=== PATIENT | female | born 1980 | race Two or more races ===

== ENCOUNTER 2021-03-06 11:28 | Emergency (ER) | payer MEDICAID, OTHER ==
[~2021-03-06] VITALS: Ht 167.6 cm; Wt 77.0 kg
[2021-03-06 12:30] LABS: BASOPHILS % 0.5 % (0.0-2.0); EOSINOPHILS % 1.4 % (0.0-5.0); HEMATOCRIT. 48.1 % (36.0-48.0); LYMPHOCYTES % 16.1 % (20.0-50.0); MEAN CORPUSCULAR VOLUME 89.7 fL (81.0-99.0); MEAN PLATELET VOLUME 9.5 fl (7.4-10.4); MONOCYTES % 4.8 % (2.0-8.0); NEUTROPHILS % 77.2 % (40.0-76.0); PLATELET 268 x1000/uL (130-400); RED BLOOD CELL COUNT 5.36 mill/uL (4.2-5.4); RED CELL DISTRIBUTION WIDTH 13.7 % (11.6-14.6)
[2021-03-06 12:54] LABS: CLARITY URINE CLOUDY (CLEAR); COLOR URINE YELLOW (YELLOW); KETONES URINE NEGATIVE (NEGATIVE); LEUKOCYTE ESTERASE URINE 1+ (NEGATIVE); NITRITE URINE POSITIVE (NEGATIVE); OCCULT BLOOD URINE 1+ (NEGATIVE); PH URINE 5.5 (4.5-8.0); PROTEIN URINE TRACE (NEGATIVE); SPECIFIC GRAVITY URINE 1.018 (1.005-1.030); UROBILINOGEN URINE 0.2 E.U./dL (0.2-1.0)
[2021-03-06 13:00] LABS: HCG SCREEN NEGATIVE
[2021-03-06 13:07] LABS: HEMOGLOBIN. 16.9 g/dL (12.0-16.0); MEAN CORPUSCULAR HEMOGLOBIN 31.5 pg (28.0-32.0)
[2021-03-06 15:02] LABS: CHLORIDE 107 mEq/L (98-107)
[2021-03-06] MEDS ORDERED: ACETAMINOPHEN 325MG TABLET PO ONE (21:30)
[2021-03-06 21:35] VITALS: BP 115/75
== END 2021-03-06 21:42 | disposition short-term general hospital (02) ==
LOC: ER 11:28 → CANBEDREQ 03-07 02:37
DX: K85.90 Acute pancreatitis without necrosis or infection, unspecified (principal)
CPT/HCPCS: 36415; 74176; 76705; 80048; 80076; 81003; 81025; 84703; 85025; 93005; 99285

== ENCOUNTER 2023-08-02 14:19 | Emergency (ER) | payer SELFPAY ==
[~2023-08-02] VITALS: Ht 167.6 cm; Wt 74.0 kg
[2023-08-02 14:21] VITALS: BP 106/66; TEMP 98.2; O2SAT 98
[2023-08-02 14:22] VITALS: PULSE 78; RESP 18
[2023-08-02] MEDS ORDERED: ACETAMINOPHEN 325MG TABLET PO PRN (14:45)
[2023-08-02 15:03] LABS: HEMATOCRIT. 34.4 % (36.0-48.0); HEMOGLOBIN. 12.6 g/dL (12.0-16.0); MEAN CORPUSCULAR HEMOGLOBIN 32.4 pg (28.0-32.0); MEAN CORPUSCULAR HGB CONC 36.7 g/dL (31.0-37.0); MEAN CORPUSCULAR VOLUME 88.1 fL (81.0-99.0); MEAN PLATELET VOLUME 9.6 fl (7.4-10.4); PLATELET 188 x1000/uL (130-400); RED CELL DISTRIBUTION WIDTH 14.8 % (11.6-14.6); WHITE BLOOD COUNT 10.1 x1000/uL (4.5-11.0)
[2023-08-02 15:11] LABS: DIFFERENTIAL COMMENT 1
[2023-08-02] MEDS ORDERED: METOCLOPRAMIDE HCL 10MG TABLET PO ONE (15:30)
[2023-08-02 15:34] LABS: CHLORIDE 101 mEq/L (98-107); INDEX HEMOLYSI 5 (1-3); INDEX ICTERIC 2 (1-4); INDEX LIPEMIC 2 (1-3); POTASSIUM 3.8 mEq/L (3.5-5.1); SODIUM 133 mEq/L (136-145)
[2023-08-02 15:51] LABS: ALBUMIN 2.9 g/dL (3.4-5.0); BILIRUBIN TOTAL 0.8 mg/dL (0.1-1.0); CALCIUM 7.9 mg/dL (8.5-10.1); CARBON DIOXIDE 15 mEq/L (21-32); CREATININE 0.5 mg/dL (0.6-1.3); GLUCOSE 123 mg/dL (70-105); PROTEIN TOTAL 7.3 g/dL (6.0-8.3); UREA NITROGEN BLOOD 6 mg/dL (7-21)
[2023-08-02 17:59] LABS: CLARITY URINE CLEAR (CLEAR); COLOR URINE YELLOW (YELLOW); GLUCOSE URINE NEGATIVE (NEGATIVE); KETONES URINE 3+ (NEGATIVE); LEUKOCYTE ESTERASE URINE NEGATIVE (NEGATIVE); NITRITE URINE NEGATIVE (NEGATIVE); OCCULT BLOOD URINE NEGATIVE (NEGATIVE); PH URINE 6.5 (4.5-8.0); PROTEIN URINE NEGATIVE (NEGATIVE); SPECIFIC GRAVITY URINE 1.012 (1.005-1.030); UROBILINOGEN URINE 0.2 E.U./dL (0.2-1.0)
[2023-08-02 18:04] LABS: ANISOCYTOSIS 1+; PLATELET ESTIMATE NORMAL
[2023-08-02 19:17] LABS: ALANINE AMINOTRANSFERASE 29 IU/L (13-61); ASPARTATE AMINOTRANSFERASE 50 IU/L (15-37)
[2023-08-02 19:47] LABS: B-HCG QUANTITATIVE 20335 mIU/mL (<3)
[2023-08-02] MEDS ORDERED: METOCLOPRAMIDE HCL 10MG TABLET PO NR (20:15)
== END 2023-08-02 20:17 | disposition home or self-care (01) ==
LOC: ER 14:19
DX: O26.892 Other specified pregnancy related conditions, second trimester (principal); Z3A.15 15 weeks gestation of pregnancy
CPT/HCPCS: 99284; 76705; 76805; 80053; 81003; 84702; 83690; 85025; 86850; 86900; 86901; 36415; J8597